=== PATIENT | male | born 1945 | race Asian ===

== ENCOUNTER 2019-06-07 17:46 | Emergency (ER) | payer OTHER, MEDICARE ==
[~2019-06-07] VITALS: Ht 167.6 cm; Wt 88.5 kg
[~2019-06-07 17:46] MED LIST: ASPI-1155 PO; CYMBALTA; LISI-209 PO; LOVA20TA2 PO; RABE20TA18 PO
[2019-06-07 18:05] VITALS: BP_SYST 162
--- NOTE | 2019-06-07 20:38 | NUR ---
Per admitting, pt LWBS at this time ambulatory with steady gait.
== END 2019-06-07 20:38 | disposition left against medical advice (07) ==
LOC: SED 17:46
DX: M79.642 Pain in left hand (principal); Z53.21 Procedure and treatment not carried out due to patient leaving prior to being seen by health care provider
CPT/HCPCS: 99281